=== PATIENT | female | born 2000 | race African-American/Black ===

== ENCOUNTER 2022-08-20 13:26 | Emergency (ER) | payer BC, SELFPAY ==
[2022-08-20] MEDS ORDERED: Dexamethasone 10 MG/ML VIAL ONE (18:20)
[2022-08-20] MEDS ORDERED: Bicillin LA 1.2 MILLION UNITS/2 ML SYRINGE IM SCH (18:30)
== END 2022-08-20 18:50 | disposition home or self-care (01) ==
LOC: CSHERS 13:26
DX: J02.9 Acute pharyngitis, unspecified (principal)
CPT/HCPCS: 87081; 87430; 96372; 99283; J0561; J1100